=== PATIENT | male | born 1990 | race African-American/Black ===

== ENCOUNTER 2020-01-12 19:14 | Emergency (ER) | payer OTHER ==
[2020-01-12 19:22] VITALS: TEMP 98.7; BMI 24.3
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
[2020-01-12] MEDS ORDERED: MAG HYDROX/AL HYDROX/SIMETH 30 ML UNIT-DOSE CUP PO ONE (20:08)
[2020-01-12] MEDS ORDERED: ONDANSETRON *ODT* 4 MG TABLET SL ONE (20:08)
[2020-01-12] MEDS ORDERED: FAMOTIDINE 20 MG TABLET PO ONE (20:08)
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
[2020-01-12] MEDS ORDERED: ONDANSETRON *ODT* 4 MG TABLET ONE (20:24)
[2020-01-12] MEDS ORDERED: FAMOTIDINE 20 MG TABLET ONE (20:24)
[2020-01-12] MEDS ORDERED: MAG HYDROX/AL HYDROX/SIMETH 30 ML UNIT-DOSE CUP ONE (20:25)
[2020-01-12] MEDS ORDERED: DICYCLOMINE HCL 20 MG TABLET PO ONE (21:04)
[2020-01-12] MEDS ORDERED: DICYCLOMINE HCL 10 MG CAPSULE ONE (21:06)
[2020-01-12] MEDS ORDERED: LACTULOSE 20 GM/30 ML UDC (FOR ORAL USE ONLY) PO ONE ×2 (21:36→21:37)
[2020-01-12 21:59] VITALS: BP 119/76; PULSE 84
== END 2020-01-12 21:55 | disposition home or self-care (01) ==
LOC: JER 19:14
DX: K21.9 Gastro-esophageal reflux disease without esophagitis (principal); F17.210 Nicotine dependence, cigarettes, uncomplicated
CPT/HCPCS: 74019-TC-FY; 99283-25; Q0162

== ENCOUNTER 2020-05-19 10:48 | Emergency (ER) | payer OTHER ==
[2020-05-19 10:55] VITALS: TEMP 97.9; BMI 26.6
--- NOTE | 2020-05-19 11:11 | PDOC ---
History of Present Illness - General Chief Complaint: Abscess Boil Stated Complaint: ABSCESS/NUMBNESS Time Seen by Provider: 05/19/20 11:09 History Source: Patient Exam Limitations: No Limitations - History of Present Illness Initial Comments: 05/19/20 11:55 HPI: This is a 29 y/o male with an admitted history of PCP use, last use two days ago, who presented to the ED via EMS from urgent care due to an abscess on his forehead. He states that it started out as a bug bite and has grown. Admits to some drainage. Denies systemic symptoms such as fever or chills. Denies chest pain, abdominal pain, nausea, vomiting. Patient denies any current use of PCP, etoh, or any other substances. PMH: Denied PSH: Denied Meds: Denied Allergies: Denied Social Hx: PCP use, 13 year 5 cig/day smoker, denies etoh or other drugs. Past History - Medical History Allergies/Adverse Reactions: Allergies Allergy/AdvReac Type Severity Reaction Status Date / Time No Known Allergies Allergy Verified 05/19/20 10:51 Home Medications: Ambulatory Orders Omeprazole 20 mg PO DAILY #30 tablet.dr 01/12/20 Polyethylene Glycol 3350 [Miralax (For Daily Use) -] 17 gm PO ONCE #1 bottle 01/12/20 Cephalexin [Keflex] 500 mg PO QID 10 Days #40 capsule 05/19/20 COPD: No - Psycho-Social/Smoking History Smoking History: Never smoked Number of Cigarettes Smoked Daily: 20 - Substance Abuse Hx (Audit-C & DAST Scrn) How often the patient has a drink containing alcohol: Never Score: In Men: 4 or > Positive; In Women: 3 or > Positive: 0 Screen Result (Pos requires Nsg. Audit-10AR): Negative In the last yr the pt used illegal drug/Rx for NonMed reason: Yes Score: Yes response is considered Positive: 1 Screen Result (Positive result requires Nsg. DAST-10): Positive Review of Systems - Review of Systems Able to Perform ROS?: Yes Constitutional: No: Chills, Fever, Night Sweats HEENTM: No: Blurred Vision, Double Vision Respiratory: No: Cough, Shortness of Breath Cardiac (ROS): No: Chest Pain, Palpitations ABD/GI: No: Constipated, Nausea, Vomiting : No: Burning, Dysuria Musculoskeletal: No: Back Pain, Muscle Pain Integumentary: Yes: Other (Abscess on forehead) Neurological: No: Headache, Weakness *Physical Exam - Vital Signs Last Vital Signs Temp Pulse Resp BP Pulse Ox 97.9 F 68 18 150/96 99 05/19/20 10:51 05/19/20 10:51 05/19/20 10:51 05/19/20 10:51 05/19/20 10:51 - Physical Exam General Appearance: Yes: Appropriately Dressed. No: Apparent Distress HEENT: positive: CARLEEN, Normal Voice Neck: positive: Trachea midline, Supple Respiratory/Chest: positive: Lungs Clear, Normal Breath Sounds Cardiovascular: positive: Regular Rhythm, Regular Rate, S1, S2 Gastrointestinal/Abdominal: positive: Normal Bowel Sounds, Soft Musculoskeletal: positive: Normal Inspection. negative: CVA Tenderness (R), CVA Tenderness (L) Extremity: positive: Normal Capillary Refill, Normal Inspection, Normal Range of Motion Integumentary: positive: Other (1.5 cm non-draining, non-erythemetous mildly fluctuant abscess on forehead) Neurologic: positive: Alert, Normal Mood/Affect Medical Decision Making - Medical Decision Making 05/19/20 12:13 This is a 29 y/o male with no PMH except for admitted PCP use presenting due to an abscess on his forehead for the past two days. The patient is not complaining of any systemic symptoms and is afebrile Abscess was draining yesterday but POCUS showed no discrete fluid collection BGA was 98 Patient will get first dose of Keflex now, and a prescription will be sent to pharmacy Discharge - Discharge Information Problems reviewed: Yes Clinical Impression/Diagnosis: Abscess Condition: Stable - Admission No - Additional Discharge Information Prescriptions: Cephalexin [Keflex] 500 mg PO QID 10 Days #40 capsule - Follow up/Referral Referrals: Maryanne Cole NP [Primary Care Provider] - - Patient Discharge Instructions Patient Printed Discharge Instructions: DI for Skin Abscess Additional Instructions: You were seen in the ED today for an abscess on your forehead. You were given a physical exam and the first dose of your Keflex. An Ultrasound was done which showed there was no discrete fluid collection for us to drain. 10 Days of Keflex was sent to your pharmacy. Take 4x per day for 10 days as directed. Please return to the ED with any new or concerning symptoms. Return if abscess looks infected or becomes red and inflamed, or if you develop a fever. - Post Discharge Activity
[2020-05-19] MEDS ORDERED: CEPHALEXIN MONOHYDRATE 500 MG CAPSULE (UD) PO ONE (12:08)
[2020-05-19] MEDS ORDERED: CEPHALEXIN MONOHYDRATE 500 MG CAPSULE (UD) ONE (12:15)
[2020-05-19 13:01] VITALS: BP 154/99; PULSE 56
--- NOTE | 2020-05-20 14:13 | PDOC ---
Documentation entered by Lucy Blount SCRIBE, acting as scribe for Selena Melgoza MD. Selena Melgoza MD: This documentation has been prepared by the Mine vázquez Sydney, SCRIBE, under my direction and personally reviewed by me in its entirety. I confirm that the documentation accurately reflects all work, treatment, procedures, and medical decision making performed by me. Attending Attestation - Resident Resident Name: Lucy Jacobs - ED Attending Attestation I have performed the following: I have examined & evaluated the patient, The case was reviewed & discussed with the resident, I agree w/resident's findings & plan, Exceptions are as noted - HPI HPI: 05/19/20 12:29 Patient is a 29 year old male with a significant past medical history of PCP use (last use two days ago) who presents to the ED from urgent care for further evaluation for an abscess on his forehead. As per patient, his abscess appeared two days ago secondary to a possible bug bite. Patient denies any history of bacterial infections, skin infections, or similar symptoms in the past. Patient denies headache, fever, chills, nausea, or vomiting. Denies any urinary symptoms. Denies any other symptoms. - Physicial Exam PE: 05/19/20 16:37 GENERAL: well-appearing, A/Ox4, no distress, answers questions appropriately HEENT: 1x1cm area of granulation tissue which appears to have been a picked scab, no active drainage, tissue indurated but not fluctuated, PERRLA, EOMI, moist mucous membranes NECK/BACK: no midline ttp, no spinal stepoff or deformity, no hematoma, full ROM, neck supple CARDIOVASCULAR: regular rate/rhythm, no MGR, strong peripheral pulses, capillary refill <2 seconds, extremities wwp, no edema LUNGS/RESPIRATORY: no respiratory distress, CTAB GI/ABDOMEN: symmetric [id number], normoactive BS, soft, no ttp, no midline pulsatile masses : no CVA tenderness MSK/EXTREMITIES: no muscle atrophy, no acute deformity SKIN: warm and dry, no pallor, no jaundice, no rash, no pathologic-appearing bruising, no skin breakdown, no cuts, no lesions NEUROLOGICAL: GCS 15, CN II-XII grossly intact, 5/5 strength proximally and distally, no facial droop - Medical Decision Making 29YOM without known prior h/o MRSA infection or abscesses or cellulitis, who p/w midline frontal swelling/pain which he notes was an abscess which has now drained. Initial Vital Signs Temp Pulse Resp BP Pulse Ox 97.9 F 68 18 150/96 99 05/19/20 10:51 05/19/20 10:51 05/19/20 10:51 05/19/20 10:51 05/19/20 10:51 Most likely small amount of retained purulent fluid versus mild cellulitis versus skin irritation from pushing/squeezing. Very unlikely to be serious facial infection, unlikely to be extending into sinuses or intracranially as the patient has no sinus pressure or headache or neurologic symptoms, notes mild symptoms. POCUS is completed and shows only cobblestoning consistent with mild cellulitis and inflammation. No fluid pocket necessitating drainage. Patient is appropriate for discharge home with close outpatient followup and abx prescription for mild facial cellulitis. Keflex appropriate given lack of prior MRSA. Return precautions discussed. Discharge - Discharge Information Problems reviewed: Yes Clinical Impression/Diagnosis: Abscess Condition: Stable - Admission No - Additional Discharge Information Prescriptions: Cephalexin [Keflex] 500 mg PO QID 10 Days #40 capsule - Follow up/Referral Referrals: Maryanne Cole NP [Primary Care Provider] - - Patient Discharge Instructions Patient Printed Discharge Instructions: DI for Skin Abscess Additional Instructions: You were seen in the ED today for an abscess on your forehead. You were given a physical exam and the first dose of your Keflex. An Ultrasound was done which showed there was no discrete fluid collection for us to drain. 10 Days of Keflex was sent to your pharmacy. Take 4x per day for 10 days as directed. Please return to the ED with any new or concerning symptoms. Return if abscess looks infected or becomes red and inflamed, or if you develop a fever. - Post Discharge Activity
== END 2020-05-19 13:01 | disposition home or self-care (01) ==
LOC: JER 10:48
DX: L02.01 Cutaneous abscess of face (principal)
CPT/HCPCS: 82962; 99283-25

== ENCOUNTER 2020-06-13 00:36 | Emergency (ER) | payer OTHER ==
[2020-06-13] MEDS ORDERED: ACETAMINOPHEN 500 MG TABLET (FP) PO ONE (00:54)
[2020-06-13 00:58] VITALS: BP 145/83; PULSE 65; TEMP 98.8; BMI 26.7
[2020-06-13] MEDS ORDERED: ACETAMINOPHEN 325 MG TABLET (FP) ONE (01:16)
--- NOTE | 2020-06-13 01:24 | PDOC ---
History of Present Illness <Mirtha Fountain - Last Filed: 06/13/20 02:50> - History of Present Illness Initial Comments: 29 yo male with no significant PMH brought in by EMS with right ankle pain (05/16). Pt says he was playing with his cousin 2 hours ago when he accidentally stepped on a curb and rolled his ankle inwards. He is unable to bear weight. He was intoxicated at the time with last drink at around 11pm. He has never had withdrawal and does not drink daily. Pt has normal sensation and can wiggle his toes. He denies tingling, numbness, pins and needles. He did not hurt any other extremity. 06/13/20 01:22 06/13/20 01:25 <Samantha Pollack - Last Filed: 06/13/20 04:35> - General Chief Complaint: Injury Stated Complaint: ANKLE INJURY Past History <Mirtha Fountain - Last Filed: 06/13/20 02:50> - Medical History COPD: No - Psycho-Social/Smoking History Smoking History: Current every day smoker Have you smoked in the past 12 months: Yes Number of Cigarettes Smoked Daily: 5 Information on smoking cessation initiated: No - Substance Abuse Hx (Audit-C & DAST Scrn) How often the patient has a drink containing alcohol: 2-4 times / month Number of drinks the patient has on a typical day: 1 or 2 How often the patient has six or more drinks on one occasion: Weekly Score: In Men: 4 or > Positive; In Women: 3 or > Positive: 5 Screen Result (Pos requires Nsg. Audit-10AR): Positive In the last yr the pt used illegal drug/Rx for NonMed reason: Yes Score: Yes response is considered Positive: 1 Screen Result (Positive result requires Nsg. DAST-10): Positive <Samantha Pollack - Last Filed: 06/13/20 04:35> - Medical History Allergies/Adverse Reactions: Allergies Allergy/AdvReac Type Severity Reaction Status Date / Time No Known Allergies Allergy Verified 06/13/20 00:45 Home Medications: Ambulatory Orders Omeprazole 20 mg PO DAILY #30 tablet. 01/12/20 Polyethylene Glycol 3350 [Miralax (For Daily Use) -] 17 gm PO ONCE #1 bottle 01/12/20 Cephalexin [Keflex] 500 mg PO QID 10 Days #40 capsule 05/19/20 Review of Systems - Review of Systems Constitutional: No: Chills, Fever HEENTM: No: Recent change in vision, Double Vision Respiratory: No: Cough, Shortness of Breath Cardiac (ROS): No: Chest Pain, Palpitations ABD/GI: No: Diarrhea, Nausea, Vomiting : No: Burning, Dysuria Musculoskeletal: Yes: Joint Pain (right ankle), Joint Swelling (right ankle) Neurological: No: Headache, Dizziness Psychiatric: No: Anxiety, Depression, Mood Swings Endocrine: No: Intolerance to Cold, Intolerance to Heat <Samantha Pollack - Last Filed: 06/13/20 04:35> *Physical Exam - Vital Signs Last Vital Signs Temp Pulse Resp BP Pulse Ox 98.8 F 65 20 145/83 97 06/13/20 00:45 06/13/20 00:45 06/13/20 00:45 06/13/20 00:45 06/13/20 00:45 <Mirtha Fountain - Last Filed: 06/13/20 02:50> - Vital Signs Last Vital Signs Temp Pulse Resp BP Pulse Ox 98.8 F 65 20 145/83 97 06/13/20 00:45 06/13/20 00:45 06/13/20 00:45 06/13/20 00:45 06/13/20 00:45 - Physical Exam General Appearance: Yes: Appropriately Dressed, Apparent Distress HEENT: positive: EOMI, Normal Voice Neck: negative: Tender, Rigid Respiratory/Chest: positive: Lungs Clear, Normal Breath Sounds. negative: Respiratory Distress Cardiovascular: positive: Regular Rhythm, Regular Rate, S1, S2 Gastrointestinal/Abdominal: positive: Flat, Soft, Other (midline scar from abdominal surgery). negative: Tender Musculoskeletal: positive: Other (tender swollen right ankle extending to the midfoot. neurmuscularly in tact. pulses are strong and equal bilaterally. ) Extremity: positive: Normal Capillary Refill, Tender Integumentary: positive: Normal Color, Dry, Warm Neurologic: positive: Fully Oriented, Alert, Normal Mood/Affect <Samantha Pollack - Last Filed: 06/13/20 04:35> ED Treatment Course - RADIOLOGY Radiology Studies Ordered: Category Date Time Status ANKLE & FOOT-RIGHT* [RAD] Stat Radiology 06/13/20 00:53 Taken LEG TIB/FIB-RIGHT [RAD] Stat Radiology 06/13/20 00:53 Taken - Medications Given in the ED: ED Medications Discontinued Medications Generic Name Dose Route Start Last Admin Trade Name Daina PRN Reason Stop Dose Admin Acetaminophen 1,000 mg 06/13/20 00:54 06/13/20 01:47 Tylenol - PO 06/13/20 00:55 1,000 mg ONCE ONE Administration <Mirtha Fountain - Last Filed: 06/13/20 02:50> Medical Decision Making - Medical Decision Making 29 yo male with no significant PMH presents after inverting his right ankle 2 hours ago. Unable to bear weight Neuromuscularly in tact with equal pulses bilaterally. Acetaminophen and ibuprofen given for pain Xray reveals a distal tibial fracture Pt is given an aircast and crutches with instructions to remain non-weight bearing and follow up with ortho. <Samantha Pollack - Last Filed: 06/13/20 04:35> Discharge <Mirtha Fountain - Last Filed: 06/13/20 02:50> - Discharge Information Problems reviewed: Yes - Admission No <Samantha Pollack - Last Filed: 06/13/20 04:35> - Discharge Information Clinical Impression/Diagnosis: Ankle fracture Condition: Stable Disposition: HOME - Follow up/Referral Referrals: Les Aquino MD [Staff Physician] - Brannon Faustin MD [Staff Physician] - - Patient Discharge Instructions Additional Instructions: You were evaluated today with a right ankle fracture. Follow up with the orthopedic doctor within 5 days to further evaluate your condition. You must remain non-weight bearing and use crutches and the aircast only for ambulation. Return to the ED if your condition worsens and/or you experience worsening pain, numbness, tingling, cold toes, or inability to move the toes.
[2020-06-13] MEDS ORDERED: IBUPROFEN 400 MG TABLET (FP) PO ONE ×2 (03:21→03:30)
--- NOTE | 2020-06-13 03:30 | PDOC ---
Attending Attestation - Resident Resident Name: Samantha Pollack - ED Attending Attestation I have performed the following: I have examined & evaluated the patient, The case was reviewed & discussed with the resident, I agree w/resident's findings & plan, Exceptions are as noted - HPI HPI: 06/19/20 20:16 See resident hpi - Physicial Exam PE: 06/19/20 20:16 Agree with documented exam - Medical Decision Making 06/19/20 20:21 29M with R lateral mal px/tenderness after inverting his R ankle on a curb sprain vs fracture analgesia xr will likely need at least posterior splint given exam dispo per clinical course xr shows distal fib fracture, air cast, nwb, crutch instruction, ortho f/u Discharge - Discharge Information Problems reviewed: Yes Clinical Impression/Diagnosis: Ankle fracture Condition: Stable Disposition: HOME - Follow up/Referral Referrals: Les Aquino MD [Staff Physician] - Brannon Faustin MD [Staff Physician] - - Patient Discharge Instructions Additional Instructions: You were evaluated today with a right ankle fracture. Follow up with the orthopedic doctor within 5 days to further evaluate your condition. You must rem ain non-weight bearing and use crutches and the aircast only for ambulation. Return to the ED if your condition worsens and/or you experience worsening pain, numbness, tingling, cold toes, or inability to move the toes. - Post Discharge Activity
== END 2020-06-13 04:47 | disposition home or self-care (01) ==
LOC: JER 00:36
DX: S82.92XA Unspecified fracture of left lower leg, initial encounter for closed fracture (principal)
CPT/HCPCS: 73590-TC-RT-FY; 73610-TC-RT-FY; 73630-TC-RT-FY; 99284-25

== ENCOUNTER 2020-06-23 04:31 | Day surgery (SDC) | payer OTHER ==
[2020-06-18 12:39] VITALS: BMI 28.4
--- NOTE | 2020-06-19 07:54 | HP ---
[facility] - Chief Complaint Chief Complaint: right ankle fx - Past Medical History Allergies/Adverse Reactions: Allergies Allergy/AdvReac Type Severity Reaction Status Date / Time Fish Containing Products Allergy Severe Swelling Verified 06/18/20 12:33 - Current Medications Current Medications: Home Medications Medication Instructions Recorded Inhaler, Assist Devices 1 puff IH PRN PRN 06/18/20 Hydrocodone/Acetaminophen 1 each PO Q6H #30 tablet MDD 4 06/19/20 [Hydrocodone-Acetamin 5-325 mg] Satellite Physical Exam - Physical Examination General Appearance: Well Nourished, Well Developed, Alert & Oriented x3 ENT: Clear Lung: Normal air movement Extremities: Other (right ankle- splint intact, nvi) Neurological: Intact, Alert, Oriented [facility]ellite Impression/Plan - Impression/Plan Impression: right distal fibula fx Operative Procedure: right ankle orif Date to be Performed: 06/19/20
[2020-06-23] MEDS ORDERED: PROPOFOL 20 ML ONE (07:13)
[2020-06-23] MEDS ORDERED: MIDAZOLAM HCL 2 MG/2 ML SINGLE DOSE VIAL ONE ×2 (07:13→08:31)
[2020-06-23] MEDS ORDERED: SUCCINYLCHOLINE CHLORIDE 200 MG/10 ML SYRINGE ONE (07:13)
[2020-06-23] MEDS ORDERED: LIDOCAINE HCL 1%, 10 MG/ML (20ML VIAL) ONE (08:15)
[2020-06-23] MEDS ORDERED: ceFAZolin 2 GRAM PREMIX BAG IVPB ONE (08:30)
[2020-06-23] MEDS ORDERED: ceFAZolin SODIUM 1 GM VIAL ONE (08:34)
[2020-06-23] MEDS ORDERED: DEXAMETHASONE SOD PHOSPHATE 4 MG/1 ML VIAL ONE (08:34)
[2020-06-23] MEDS ORDERED: KETOROLAC TROMETHAMINE 30 MG/1 ML VIAL ONE (08:34)
--- NOTE | 2020-06-23 09:56 | OP ---
Operative Note - Note: Operative Date: 06/23/20 Pre-Operative Diagnosis: right ankle lateral malleolus fracture Operation: right ankle lateral malleolus ORIF Implants: Rylee Ankle low profile plate, titanium, 2 x 3.5mm lag screws, 3 x nonlocking screws (all 14mm length), 4 x locking screws (10-12mm length) Post-Operative Diagnosis: Same as Pre-op Surgeon: Brannon Faustin Anesthesiologist/CHEMISTS: Franco Connor Anesthesia: Spinal, MAC Estimated Blood Loss (mls): 0 Drains, Volume Out (mls): 0 Blood Volume Replaced (mls): 0 Fluid Volume Replaced (mls): 1,000 Operative Report Dictated: Yes
[2020-06-23] MEDS ORDERED: ONDANSETRON 4 MG/2 ML VIAL IVPUSH PRN (10:04)
[2020-06-23] MEDS ORDERED: oxyCODONE HCL 5 MG TABLET PO PRN (10:04)
[2020-06-23] MEDS ORDERED: LACTATED RINGERS SOLUTION 1,000 ML IV SCH (10:15)
[2020-06-23] MEDS ORDERED: oxyCODONE HCL 5 MG TABLET ONE (11:34)
--- NOTE | 2020-06-23 12:59 | OP ---
DATE OF OPERATION: 06/23/2020 PREOPERATIVE DIAGNOSIS: Right ankle displaced lateral malleolus fracture. POSTOPERATIVE DIAGNOSIS: Right ankle displaced lateral malleolus fracture. PROCEDURE: Right ankle lateral malleolus open reduction internal fixation. SURGEON: Byron Diaz MD ASSISTANTS: None. ANESTHESIOLOGISTS: BARBARA Prasad and DRAINS: None. COMPLICATIONS: None. SPECIMEN: None. FLUID REPLACEMENT: Plasma-Lyte 1000 mL. IMPLANT: [place] low-profile ankle solutions distal fibular plate with three 14-mm 3.5-mm diameter nonlocking screws, four 10- to 12-mm fully threaded locking screws and two 3.5-mm fully threaded lag screws. INDICATIONS: This patient is a 29-year-old male with a preoperative diagnosis of a right ankle displaced distal fibula fracture. After understanding the potential risks, complications, alternatives and benefits of surgery versus nonsurgical treatment, the patient elected to undergo this procedure. DESCRIPTION OF PROCEDURE: Patient was brought to the operating room. Peripheral IV placed. IV sedation given. Two g of IV Ancef were given. Spinal anesthesia was induced by and Dr. Payne. The patient was then put into the supine position. A tourniquet was applied to the right upper thigh. The right lower extremity was prepped and draped in a sterile fashion, elevated, exsanguinated with an Esmarch bandage. Tourniquet inflated to 275 mmHg. X-rays were taken with the mini C-arm fluoroscopy to document this was the correct side and the displacement of the fracture fragment. Next, a lateral incision was made over the distal fibula. Subcutaneous hemostasis was achieved with the Bovie cautery. Dissection done down to the bone with a No. 15 scalpel blade. A subperiosteal dissection was done with a periosteal elevator exposing the fracture site, the distal aspect of the fibula and about 4 inches proximal to the fracture site. The fracture site was copiously irrigated and washed out. There was muscle, soft tissue debris inside the fracture site including periosteum. This was cleared out with a small curette. It was irrigated and washed out again. I was unable to do a reduction. With the lobster claw bone-reducing forceps it all came together quite nicely. It felt good. It looked good. It looked well reduced. X-rays were taken documenting excellent reduction in the AP, lateral and multiple oblique planes. Ankle mortise looked good and the syndesmosis looked good. Next, I put in 2 lag screws in the standard fashion, first with a 2.5-mm drill bit and then over-drilling the proximal cortex with a 3.5-mm drill bit and I put in a 26- and a 24-mm fully threaded lag screw. This held the fractures in position quite well. The lobster clamps were removed. The bone held. Multiple x-rays were taken in the AP, lateral and oblique planes showing excellent position of the fracture fragments, the reduction, the ankle joint and the hardware. Next, I put in an ankle solutions low-profile [place] titanium plate. It was premolded to the distal fibula. It fit quite well. It was held in place. First I put in 1 distal screw that was a 10-mm fully threaded locking screw. Then I put in 1 screw proximal to the fracture site. This was a 3.5-mm fully threaded nonlocking screw. It brought the plate down quite well. This was very good position. X-rays were taken in the AP, lateral, multiple oblique planes. The fracture site looked good. The hardware looked good and, therefore, the rest of the screws were put in in a standard fashion. Proximal to the fracture site I had 3 screws, all fully threaded nonlocking screws 14 mm in length and distal to the 2 lag screws I had 4 unicortical fully threaded locking screws of 10 to 12 mm in length. The area was copiously irrigated and washed out. Final x-rays were taken. The periosteum closed over the plate with 0 Vicryl suture and the deep dermal layer closed with 2-0 Vicryl suture. Final skin reapproximation was done with martina. The area was then washed and dried, covered with Xeroform gauze, 4 x 4 gauze and a posterior 6-inch Ortho-Glass splint was applied, wrapped with 3 Yobany bandages. The tourniquet was taken down after total tourniquet time of 61 minutes. There were no complications during the case. The patient tolerated the procedure quite well and was brought to the ambulatory recovery room in stable condition. BYRON DIAZ M.D. [id number]
[2020-06-23 16:21] VITALS: BP 150/63; PULSE 73; TEMP 97.8
== END 2020-06-23 15:00 | disposition home or self-care (01) ==
LOC: JASU-SURG 04:31 → MERGE 04:31 → JASU-SURG 15:00
PROVIDERS: ATTEND Orthopaedic Surgery
PROC: 0QSJ04Z Reposition Right Fibula with Internal Fixation Device, Open Approach (ICD-10-PCS; principal; 2020-06-23 08:00)
DX: S82.61XA Displaced fracture of lateral malleolus of right fibula, initial encounter for closed fracture (principal); X58.XXXA Exposure to other specified factors, initial encounter; Y93.9 Activity, unspecified; Y92.9 Unspecified place or not applicable; Y99.9 Unspecified external cause status
CPT/HCPCS: 27792; C1713; 76000-TC-FY; 94760; 97116-GP

== ENCOUNTER 2022-11-05 08:16 | Emergency (ER) | payer OTHER ==
[2022-11-05 08:39] VITALS: BP 135/88; PULSE 68; RESP 18; TEMP 97; BMI 26.6
[2022-11-05] MEDS ORDERED: ONDANSETRON 4 MG/2 ML VIAL IVPUSH ONE (12:24)
[2022-11-05] MEDS ORDERED: SODIUM CHLORIDE 1,000 ML IV STA (12:24)
[2022-11-05] MEDS ORDERED: ONDANSETRON 4 MG/2 ML VIAL ONE (12:40)
[2022-11-05 13:19] LABS: URINE APPEARANCE CLEAR; URINE BILIRUBIN NEGATIVE (NEGATIVE); URINE COLOR YELLOW; URINE GLUCOSE (UA) NEGATIVE (NEGATIVE); URINE KETONE NEGATIVE (NEGATIVE); URINE LEUK ESTERASE NEGATIVE (NEGATIVE); URINE NITRITE NEGATIVE (NEGATIVE); URINE PROTEIN NEGATIVE (NEGATIVE); URINE UROBILINOGEN 0.2 mg/dL (0.2-1.0)
[2022-11-05 13:32] LABS: BASO % 0.6 % (0-2.0); HEMATOCRIT 42.6 % (35.4-49); HEMOGLOBIN 13.9 GM/dL (11.7-16.9); LYMPH % 13.4 % (8-40); MCH 30.6 pg (25.7-33.7); MCHC 32.8 g/dl (32.0-35.9); MEAN CELL VOLUME 93.5 fl (80-96); MONO % 3.9 % (3.8-10.2); NEUT % 79.1 % (42.8-82.8); PLATELET COUNT 235 10^3/uL (134-434); RBC 4.55 M/mm3 (4.00-5.60); RDW 13.6 % (11.9-15.9); WHITE BLOOD COUNT 8.1 K/mm3 (4.0-10.0)
[2022-11-05 13:56] LABS: CALCIUM 9.6 mg/dL (8.5-10.1)
[2022-11-05 13:57] LABS: ALBUMIN 3.5 g/dl (3.4-5.0); BLOOD UREA NITROGEN 11.3 mg/dL (7-18)
[2022-11-05 14:00] LABS: CREATININE 0.9 mg/dL (0.55-1.3)
[2022-11-05 14:01] LABS: BILIRUBIN,TOTAL 0.8 mg/dL (0.2-1); TOT PROT 6.9 g/dl (6.4-8.2)
== END 2022-11-05 15:57 | disposition home or self-care (01) ==
LOC: JERFT 08:16
PROC: 3E033GC Introduction of Other Therapeutic Substance into Peripheral Vein, Percutaneous Approach (ICD-10-PCS; principal; 2022-11-05)
DX: B34.9 Viral infection, unspecified (principal)
CPT/HCPCS: 0241U-QW; 36415; 71046-TC-FY; 80053; 81003; 83690; 85025; 87086; 99284-25

== ENCOUNTER 2022-12-27 13:22 | Inpatient (IN) | payer OTHER ==
[2022-12-27 14:04] VITALS: BMI 25.1
[2022-12-27] MEDS ORDERED: POLYETHYLENE GLYCOL (HEALTHYLAX) 3350 17 GM PACKET PO PRN (14:43)
[2022-12-27] MEDS ORDERED: LOPERAMIDE HCL 2 MG CAPSULE PO PRN (14:43)
[2022-12-27] MEDS ORDERED: IBUPROFEN 600 MG TABLET (FP) PO PRN (14:43)
[2022-12-27] MEDS ORDERED: BISMUTH SUBSALICYLATE 262 MG/15 ML BTL PO PRN (14:43)
[2022-12-27] MEDS ORDERED: NICOTINE POLACRILEX 4 MG GUM BUC PRN (14:43)
[2022-12-27] MEDS ORDERED: chlordiazePOXIDE HCL 25 MG CAPSULE PO PRN (14:43)
[2022-12-27] MEDS ORDERED: ACETAMINOPHEN 325 MG TABLET (FP) PO PRN ×2 (14:43)
[2022-12-27] MEDS ORDERED: IBUPROFEN 400 MG TABLET (FP) PO PRN (14:43)
[2022-12-27] MEDS ORDERED: NICOTINE 10 MG CARTRIDGE (INHALER) IH PRN (14:43)
[2022-12-27] MEDS ORDERED: BENZOCAINE/MENTHOL (CHLORASEPTIC ) LOZENGE MM PRN (14:43)
[2022-12-27] MEDS ORDERED: MAG HYDROX/AL HYDROX/SIMETH 30 ML UNIT-DOSE CUP PO PRN (14:43)
[2022-12-27] MEDS ORDERED: ONDANSETRON *ODT* 4 MG TABLET SL PRN (14:43)
[2022-12-27] MEDS ORDERED: DICYCLOMINE HCL 10 MG CAPSULE PO PRN (14:43)
[2022-12-27] MEDS ORDERED: TRIMETHOBENZAMIDE HCL 200MG/2ML INJ IM PRN (14:49)
[2022-12-27] MEDS: chlordiazePOXIDE HCL 25 MG CAPSULE PO SCH ×2 (17:04→22:24)
[2022-12-27] MEDS: NICOTINE 21 MG/24 HOURS TOPICAL PATCH TD SCH (17:43)
[2022-12-27] MEDS: THIAMINE HCL 100 MG TABLET (FP) PO SCH (22:24)
[2022-12-27] MEDS: FAMOTIDINE 20 MG TABLET PO SCH (22:24)
[2022-12-27] MEDS: MELATONIN 5 MG TABLETS PO SCH (22:43)
[2022-12-28] MEDS: chlordiazePOXIDE HCL 25 MG CAPSULE PO SCH ×4 (05:13→22:24)
[2022-12-28] MEDS: NICOTINE 21 MG/24 HOURS TOPICAL PATCH TD SCH (10:19)
[2022-12-28] MEDS: PRENATAL VITAMINS W/ FOLIC ACID TABLET (FP) PO SCH (10:19)
[2022-12-28] MEDS: FAMOTIDINE 20 MG TABLET PO SCH ×2 (10:19→22:24)
[2022-12-28 12:02] LABS: HEMATOCRIT 40.6 % (35.4-49); HEMOGLOBIN 13.7 GM/dL (11.7-16.9); MCH 31.1 pg (25.7-33.7); MCHC 33.7 g/dl (32.0-35.9); MEAN CELL VOLUME 92.4 fl (80-96); MEAN PLT VOLUME 8.6 fl (7.5-11.1); PLATELET COUNT 232 10^3/uL (134-434); RDW 13.2 % (11.9-15.9); WHITE BLOOD COUNT 4.4 K/mm3 (4.0-10.0)
[2022-12-28 12:07] LABS: CALCIUM 9.1 mg/dL (8.5-10.1)
[2022-12-28 12:08] LABS: ALBUMIN 3.2 g/dl (3.4-5.0); BLOOD UREA NITROGEN 7.6 mg/dL (7-18)
[2022-12-28 12:11] LABS: CREATININE 0.7 mg/dL (0.55-1.3)
[2022-12-28 12:12] LABS: BILIRUBIN,TOTAL 0.2 mg/dL (0.2-1); TOT PROT 6.4 g/dl (6.4-8.2)
[2022-12-28 13:02] LABS: HIV INTERPRETATION NEGATIVE (NEGATIVE)
[2022-12-28] MEDS: MAGNESIUM HYDROX 2400MG/30ML ORAL SUSPENSION 30 ML CUP PO PRN (16:50)
[2022-12-28] MEDS: THIAMINE HCL 100 MG TABLET (FP) PO SCH (22:24)
[2022-12-28] MEDS: MELATONIN 5 MG TABLETS PO SCH (22:28)
[2022-12-28] MEDS: ALBUTEROL SO4 HFA INHALER IH PRN (22:32)
[2022-12-29] MEDS: chlordiazePOXIDE HCL 25 MG CAPSULE PO SCH ×4 (05:27→22:05)
[2022-12-29] MEDS: NICOTINE 21 MG/24 HOURS TOPICAL PATCH TD SCH (10:48)
[2022-12-29] MEDS: FAMOTIDINE 20 MG TABLET PO SCH ×2 (10:48→22:05)
[2022-12-29] MEDS: hydrOXYzine PAMOATE 25 MG CAPSULE (FP) PO PRN (10:48)
[2022-12-29] MEDS: METHOCARBAMOL 500 MG TABLET PO PRN ×2 (10:48→22:05)
[2022-12-29] MEDS: PRENATAL VITAMINS W/ FOLIC ACID TABLET (FP) PO SCH (10:49)
[2022-12-29] MEDS: THIAMINE HCL 100 MG TABLET (FP) PO SCH (22:05)
[2022-12-29] MEDS: MELATONIN 5 MG TABLETS PO SCH (22:06)
[2022-12-29] MEDS: MAGNESIUM HYDROX 2400MG/30ML ORAL SUSPENSION 30 ML CUP PO PRN (22:08)
[2022-12-29] MEDS: ALBUTEROL SO4 HFA INHALER IH PRN (22:27)
[2022-12-30] MEDS ORDERED: chlordiazePOXIDE HCL 10 MG CAPSULE PO PRN
[2022-12-30] MEDS: chlordiazePOXIDE HCL 10 MG CAPSULE PO SCH ×4 (06:26→22:38)
[2022-12-30] MEDS: METHOCARBAMOL 500 MG TABLET PO PRN (10:38)
[2022-12-30] MEDS: FAMOTIDINE 20 MG TABLET PO SCH ×2 (10:38→22:38)
[2022-12-30] MEDS: NICOTINE 21 MG/24 HOURS TOPICAL PATCH TD SCH (10:39)
[2022-12-30] MEDS: PRENATAL VITAMINS W/ FOLIC ACID TABLET (FP) PO SCH (10:39)
[2022-12-30 20:46] VITALS: RESP 18
[2022-12-30] MEDS: THIAMINE HCL 100 MG TABLET (FP) PO SCH (22:38)
[2022-12-30] MEDS: MELATONIN 5 MG TABLETS PO SCH (22:40)
[2022-12-31] MEDS ORDERED: chlordiazePOXIDE HCL 10 MG CAPSULE PO SCH (05:00)
[2022-12-31] MEDS: hydrOXYzine PAMOATE 25 MG CAPSULE (FP) PO PRN (10:58)
[2022-12-31] MEDS: PRENATAL VITAMINS W/ FOLIC ACID TABLET (FP) PO SCH (10:58)
[2022-12-31] MEDS: NICOTINE 21 MG/24 HOURS TOPICAL PATCH TD SCH (10:58)
[2022-12-31] MEDS: METHOCARBAMOL 500 MG TABLET PO PRN (10:58)
[2022-12-31] MEDS: FAMOTIDINE 20 MG TABLET PO SCH (10:58)
[2022-12-31 13:04] VITALS: BP 129/78; PULSE 82; TEMP 98
[2023-01-01] MEDS ORDERED: chlordiazePOXIDE HCL 10 MG CAPSULE PO ONE (05:00)
== END 2022-12-31 13:20 | disposition home or self-care (01) | DRG 775 ==
LOC: YASAS 13:22 → Y6N 16:07
PROVIDERS: ADMIT Allergy & Immunology; ATTEND Surgery
PROC: HZ2ZZZZ Detoxification Services for Substance Abuse Treatment (ICD-10-PCS; principal; 2022-12-27)
DX: F10.230 Alcohol dependence with withdrawal, uncomplicated (principal); F16.20 Hallucinogen dependence, uncomplicated; F12.20 Cannabis dependence, uncomplicated; F17.210 Nicotine dependence, cigarettes, uncomplicated; F19.24 Other psychoactive substance dependence with psychoactive substance-induced mood disorder; F19.282 Other psychoactive substance dependence with psychoactive substance-induced sleep disorder; J45.20 Mild intermittent asthma, uncomplicated; K21.9 Gastro-esophageal reflux disease without esophagitis; B18.2 Chronic viral hepatitis C; Z56.0 Unemployment, unspecified; Z59.01 Sheltered homelessness
CPT/HCPCS: 36415; 80053; 85027; 86780; 86803; 87389; 87522; 87811; 93005; 93010; C9803-CS; Q0162; U0003; U0005

== ENCOUNTER 2023-01-02 07:43 | Inpatient (IN) | payer OTHER ==
[2023-01-02 08:28] VITALS: BMI 25.0
[2023-01-02] MEDS ORDERED: BENZOCAINE/MENTHOL (CHLORASEPTIC ) LOZENGE MM PRN (10:11)
[2023-01-02] MEDS ORDERED: POLYETHYLENE GLYCOL (HEALTHYLAX) 3350 17 GM PACKET PO PRN (10:11)
[2023-01-02] MEDS ORDERED: P-EPHED 60MG/TRIPROLIDI 2.5MG TABLET PO PRN (10:11)
[2023-01-02] MEDS ORDERED: MAG HYDROX/AL HYDROX/SIMETH 30 ML UNIT-DOSE CUP PO PRN (10:11)
[2023-01-02] MEDS ORDERED: NICOTINE 10 MG CARTRIDGE (INHALER) IH PRN (10:11)
[2023-01-02] MEDS ORDERED: IBUPROFEN 400 MG TABLET (FP) PO PRN (10:11)
[2023-01-02] MEDS ORDERED: hydrOXYzine PAMOATE 25 MG CAPSULE (FP) PO PRN (10:11)
[2023-01-02] MEDS ORDERED: ACETAMINOPHEN 325 MG TABLET (FP) PO PRN (10:11)
[2023-01-02] MEDS ORDERED: LOPERAMIDE HCL 2 MG CAPSULE PO PRN (10:11)
[2023-01-02] MEDS ORDERED: guaiFENesin 200 MG/10 ML 10 ML UNIT-DOSE CUPS PO PRN (10:11)
[2023-01-02] MEDS ORDERED: MAGNESIUM HYDROX 2400MG/30ML ORAL SUSPENSION 30 ML CUP PO PRN (10:11)
[2023-01-02 11:26] VITALS: RESP 18
[2023-01-02] MEDS: ALBUTEROL SO4 HFA INHALER IH PRN (18:40)
[2023-01-02] MEDS: MELATONIN 5 MG TABLETS PO SCH (21:10)
[2023-01-02] MEDS: FAMOTIDINE 20 MG TABLET PO SCH (21:10)
[2023-01-02] MEDS: THIAMINE HCL 100 MG TABLET (FP) PO SCH (21:10)
[2023-01-02] MEDS: NICOTINE POLACRILEX 2 MG GUM BC PRN (23:16)
[2023-01-03 01:36] LABS: EPI CELLS 3 /uL (0-25.1); HYALINE CASTS 0 /uL (0-3.1); PH,URINE >= 9.0 (5.0-8.0); URINE APPEARANCE CLEAR; URINE BACTERIA 18 /uL (0-1359); URINE BILIRUBIN NEGATIVE (NEGATIVE); URINE COLOR YELLOW; URINE GLUCOSE (UA) NEGATIVE (NEGATIVE); URINE KETONE NEGATIVE (NEGATIVE); URINE LEUK ESTERASE NEGATIVE (NEGATIVE); URINE NITRITE NEGATIVE (NEGATIVE); URINE PROTEIN 1+ (NEGATIVE); URINE RBC 1 /uL (0-23.9); URINE WBC 2 /uL (0-25.8)
[2023-01-03] MEDS: PRENATAL VITAMINS W/ FOLIC ACID TABLET (FP) PO SCH (09:54)
[2023-01-03] MEDS: FAMOTIDINE 20 MG TABLET PO SCH ×2 (09:55→21:18)
[2023-01-03] MEDS: NICOTINE 21 MG/24 HOURS TOPICAL PATCH TD SCH (09:55)
[2023-01-03] MEDS: NICOTINE POLACRILEX 2 MG GUM BC PRN (13:29)
[2023-01-03] MEDS: MELATONIN 5 MG TABLETS PO SCH (21:18)
[2023-01-03] MEDS: THIAMINE HCL 100 MG TABLET (FP) PO SCH (21:18)
[2023-01-03] MEDS: ALBUTEROL SO4 HFA INHALER IH PRN (23:26)
[2023-01-04] MEDS: NICOTINE 21 MG/24 HOURS TOPICAL PATCH TD SCH (10:05)
[2023-01-04] MEDS: FAMOTIDINE 20 MG TABLET PO SCH ×2 (10:05→21:11)
[2023-01-04] MEDS: PRENATAL VITAMINS W/ FOLIC ACID TABLET (FP) PO SCH (10:05)
[2023-01-04 12:26] LABS: HEMATOCRIT 39.3 % (35.4-49); HEMOGLOBIN 13.4 GM/dL (11.7-16.9); MCH 30.7 pg (25.7-33.7); MCHC 34.1 g/dl (32.0-35.9); MEAN CELL VOLUME 90.1 fl (80-96); MEAN PLT VOLUME 8.4 fl (7.5-11.1); PLATELET COUNT 189 10^3/uL (134-434); RBC 4.37 M/mm3 (4.00-5.60); RDW 13.3 % (11.9-15.9)
[2023-01-04 12:33] LABS: CALCIUM 9.2 mg/dL (8.5-10.1)
[2023-01-04 12:34] LABS: ALBUMIN 3.4 g/dl (3.4-5.0); BLOOD UREA NITROGEN 10.4 mg/dL (7-18)
[2023-01-04 12:37] LABS: CREATININE 0.8 mg/dL (0.55-1.3)
[2023-01-04 12:39] LABS: BILIRUBIN,TOTAL 0.5 mg/dL (0.2-1); TOT PROT 6.6 g/dl (6.4-8.2)
[2023-01-04] MEDS: ALBUTEROL SO4 HFA INHALER IH PRN (19:00)
[2023-01-04 19:18] LABS: HIV INTERPRETATION NEGATIVE (NEGATIVE)
[2023-01-04] MEDS: MELATONIN 5 MG TABLETS PO SCH (21:11)
[2023-01-04] MEDS: THIAMINE HCL 100 MG TABLET (FP) PO SCH (21:11)
[2023-01-05] MEDS ORDERED: SODIUM CHLORIDE NASAL SPRAY 44 ML BOTTLE NS PRN (08:23)
[2023-01-05] MEDS: PETROLATUM, WHITE 30 GM TUBE TP SCH (10:59)
[2023-01-05] MEDS: PRENATAL VITAMINS W/ FOLIC ACID TABLET (FP) PO SCH (10:59)
[2023-01-05] MEDS: FAMOTIDINE 20 MG TABLET PO SCH ×2 (10:59→21:35)
[2023-01-05] MEDS: NICOTINE 21 MG/24 HOURS TOPICAL PATCH TD SCH (11:01)
[2023-01-05] MEDS: MELATONIN 5 MG TABLETS PO SCH (21:35)
[2023-01-05] MEDS: NICOTINE POLACRILEX 2 MG GUM BC PRN (21:35)
[2023-01-05] MEDS: THIAMINE HCL 100 MG TABLET (FP) PO SCH (21:35)
[2023-01-06 07:08] VITALS: BP 119/85; PULSE 68; TEMP 97.4
[2023-01-06] MEDS: FAMOTIDINE 20 MG TABLET PO SCH (10:00)
[2023-01-06] MEDS: PRENATAL VITAMINS W/ FOLIC ACID TABLET (FP) PO SCH (10:00)
[2023-01-06] MEDS: NICOTINE 21 MG/24 HOURS TOPICAL PATCH TD SCH (10:00)
[2023-01-06] MEDS: PETROLATUM, WHITE 30 GM TUBE TP SCH (10:01)
== END 2023-01-06 13:35 | disposition home or self-care (01) | DRG 772 ==
LOC: YASAS 07:43 → Y5N 10:14
PROVIDERS: ADMIT Allergy & Immunology; ATTEND Psychiatry & Neurology Pain Medicine
PROC: HZ42ZZZ Group Counseling for Substance Abuse Treatment, Cognitive-Behavioral (ICD-10-PCS; principal; 2023-01-02)
DX: F16.20 Hallucinogen dependence, uncomplicated (principal); F12.20 Cannabis dependence, uncomplicated; F17.210 Nicotine dependence, cigarettes, uncomplicated; F19.282 Other psychoactive substance dependence with psychoactive substance-induced sleep disorder; F19.24 Other psychoactive substance dependence with psychoactive substance-induced mood disorder; J45.909 Unspecified asthma, uncomplicated; K21.9 Gastro-esophageal reflux disease without esophagitis; B18.2 Chronic viral hepatitis C
CPT/HCPCS: 36415; 80053; 81003; 85027; 86780; 86803; 87389; 87522; 87811; C9803-CS; U0003; U0005

== ENCOUNTER 2023-03-26 20:56 | Inpatient (IN) | payer OTHER ==
[2023-03-26 21:43] VITALS: BMI 25.7
[2023-03-26] MEDS ORDERED: ALBUTEROL SO4 HFA INHALER IH PRN (21:43)
[2023-03-26] MEDS ORDERED: FAMOTIDINE 20 MG TABLET PO SCH (22:00)
[2023-03-26] MEDS ORDERED: DICYCLOMINE HCL 10 MG CAPSULE PO PRN (22:01)
[2023-03-26] MEDS ORDERED: NALOXONE HCL 0.4 MG/ML VIAL IM PRN (22:01)
[2023-03-26] MEDS ORDERED: ONDANSETRON *ODT* 4 MG TABLET SL PRN (22:01)
[2023-03-26] MEDS ORDERED: LOPERAMIDE HCL 2 MG CAPSULE PO PRN (22:01)
[2023-03-26] MEDS ORDERED: MELATONIN 5 MG TABLETS PO PRN (22:01)
[2023-03-26] MEDS ORDERED: POLYETHYLENE GLYCOL (HEALTHYLAX) 3350 17 GM PACKET PO PRN (22:01)
[2023-03-26] MEDS ORDERED: ACETAMINOPHEN 325 MG TABLET (FP) PO PRN ×2 (22:01)
[2023-03-26] MEDS ORDERED: MAGNESIUM HYDROX 2400MG/30ML ORAL SUSPENSION 30 ML CUP PO PRN (22:01)
[2023-03-26] MEDS ORDERED: IBUPROFEN 600 MG TABLET (FP) PO PRN (22:01)
[2023-03-26] MEDS ORDERED: NICOTINE POLACRILEX 2 MG GUM BUC PRN (22:01)
[2023-03-26] MEDS ORDERED: BENZOCAINE/MENTHOL (CHLORASEPTIC ) LOZENGE MM PRN (22:01)
[2023-03-26] MEDS ORDERED: BISMUTH SUBSALICYLATE 524 MG/30 ML PO PRN (22:01)
[2023-03-26] MEDS ORDERED: BENZONATATE 200 MG CAPSULE PO PRN (22:01)
[2023-03-26] MEDS ORDERED: MAG HYDROX/AL HYDROX/SIMETH 30 ML UNIT-DOSE CUP PO PRN (22:01)
[2023-03-26] MEDS ORDERED: hydrOXYzine PAMOATE 25 MG CAPSULE (FP) PO PRN (22:01)
[2023-03-26] MEDS ORDERED: P-EPHED 60MG/TRIPROLIDI 2.5MG TABLET PO PRN (22:01)
[2023-03-26] MEDS ORDERED: guaiFENesin 600 MG TABLET.ER (FP) PO PRN (22:01)
[2023-03-26] MEDS ORDERED: NALOXONE HCL (KLOXXADO) 8 MG SPRAY NS PRN (22:01)
[2023-03-26] MEDS ORDERED: IBUPROFEN 400 MG TABLET (FP) PO PRN (22:01)
[2023-03-26] MEDS ORDERED: diazePAM 5 MG TABLET PO PRN (22:04)
[2023-03-26] MEDS ORDERED: diazePAM 5 MG TABLET ONE (23:44)
[2023-03-26] MEDS: diazePAM 5 MG TABLET PO SCH (23:50)
[2023-03-27] MEDS ORDERED: FAMOTIDINE 20 MG TABLET PO ONE (01:44)
[2023-03-27] MEDS: diazePAM 5 MG TABLET PO SCH ×4 (06:05→22:36)
[2023-03-27] MEDS: PRENATAL VITAMINS W/ FOLIC ACID TABLET (FP) PO SCH (10:23)
[2023-03-27] MEDS: PANTOPRAZOLE 20 MG TABLET PO SCH (10:24)
[2023-03-27 17:44] LABS: HEMATOCRIT 40.6 % (35.4-49); HEMOGLOBIN 13.8 GM/dL (11.7-16.9); MCH 31.3 pg (25.7-33.7); MEAN CELL VOLUME 91.9 fl (80-96); MEAN PLT VOLUME 8.2 fl (7.5-11.1); PLATELET COUNT 198 10^3/uL (134-434); RBC 4.42 M/mm3 (4.00-5.60); RDW 13.5 % (11.9-15.9); WHITE BLOOD COUNT 4.3 K/mm3 (4.0-10.0)
[2023-03-27 17:58] LABS: POTASSIUM 4.1 mmol/L (3.5-5.1)
[2023-03-27 18:02] LABS: ALBUMIN 3.4 g/dl (3.4-5.0); BLOOD UREA NITROGEN 10.9 mg/dL (7-18); CALCIUM 9.1 mg/dL (8.5-10.1)
[2023-03-27 18:05] LABS: CREATININE 0.9 mg/dL (0.55-1.3)
[2023-03-27 18:06] LABS: TOT PROT 6.6 g/dl (6.4-8.2)
[2023-03-27 18:11] LABS: BILIRUBIN,TOTAL 0.4 mg/dL (0.2-1)
[2023-03-27] MEDS: THIAMINE HCL 100 MG TABLET (FP) PO SCH (22:36)
[2023-03-28] MEDS ORDERED: ALBUTEROL SO4 0.083% IH SOL 2.5 MG/3 ML VIAL.NEB. NEB PRN (05:02)
[2023-03-28] MEDS: diazePAM 5 MG TABLET PO SCH ×3 (06:20→21:32)
[2023-03-28] MEDS: PRENATAL VITAMINS W/ FOLIC ACID TABLET (FP) PO SCH (10:19)
[2023-03-28] MEDS: PANTOPRAZOLE 20 MG TABLET PO SCH (10:19)
[2023-03-28] MEDS: THIAMINE HCL 100 MG TABLET (FP) PO SCH (21:31)
[2023-03-29] MEDS: diazePAM 5 MG TABLET PO SCH ×2 (07:18→17:23)
[2023-03-29] MEDS: PANTOPRAZOLE 20 MG TABLET PO SCH (10:33)
[2023-03-29] MEDS: PRENATAL VITAMINS W/ FOLIC ACID TABLET (FP) PO SCH (10:33)
[2023-03-29 17:24] VITALS: BP 142/87; PULSE 60
[2023-03-29] MEDS: THIAMINE HCL 100 MG TABLET (FP) PO SCH (23:00)
[2023-03-29 23:18] VITALS: RESP 18; TEMP 97.8
[2023-03-30] MEDS ORDERED: diazePAM 5 MG TABLET PO ONE (06:00)
== END 2023-03-30 08:55 | disposition other institution (70) | DRG 775 ==
LOC: YASAS 20:56 → Y3N 23:55
PROVIDERS: ADMIT Allergy & Immunology; ATTEND Surgery
PROC: HZ2ZZZZ Detoxification Services for Substance Abuse Treatment (ICD-10-PCS; principal; 2023-03-26)
DX: F10.230 Alcohol dependence with withdrawal, uncomplicated (principal); F16.20 Hallucinogen dependence, uncomplicated; F12.20 Cannabis dependence, uncomplicated; F17.210 Nicotine dependence, cigarettes, uncomplicated; F19.282 Other psychoactive substance dependence with psychoactive substance-induced sleep disorder; F19.24 Other psychoactive substance dependence with psychoactive substance-induced mood disorder; J45.909 Unspecified asthma, uncomplicated; K21.9 Gastro-esophageal reflux disease without esophagitis
CPT/HCPCS: 36415; 80053; 85027; 86780; C9803-CS; U0003; U0005